=== PATIENT | female | born 1980 | race Caucasian/White ===

== ENCOUNTER 2021-06-07 12:34 | Outpatient (CLI) | payer OTHER, SELFPAY ==
--- NOTE | ~2021-06-07 | XR_ITS ---
XR chest 2V DATE: 06/07/2021 14:00 INDICATION: Morbid obesity TECHNIQUE: PA and lateral views with gonadal shielding COMPARISON: None FINDINGS: Heart size is borderline. No pulmonary infiltrate or consolidation, pleural effusion or pul monary vascular congestion or pneumothorax is detected. IMPRESSION: Borderline heart size; no active pulmonary disease Reviewed, dictated and finalized at location A.
--- NOTE | 2021-06-07 12:59 | ECHO_ITS ---
Patient Info Name: Jackie Pantoja Age: 41 years : 1980 Gender: Female Ht: 65 in Wt: 348 lbs BSA: 2.79 m2 HR: 78 bpm BP: 141 / 94 mmHg Technical Quality: Fair Exam Date: 06/07/2021 1:21 PM Exam Location: [facility] Pulmonary Patient Status: Outpatient Admit Date: 06/07/2021 Staff Ordering Physician: Esa Martinez PA-C Button Grader: Jessica Abraham RDCS Attending Provider: Esa Martinez PA-C Referring Physician: Michelle BERRY; Exam Type: CA echo doppler color flow Study Info Indications - murmur hypothyroidism Complete two-dimensional, color flow and Doppler transthoracic echocardiogram is performed. Summary 1. Complete two-dimensional, color flow and Doppler transthoracic echocardiogram is performed. 2. Left ventricular chamber dimension is normal. 3. Left ventricular systolic function is normal, estimated at 60-65%. 4. The left ventricular diastolic function is normal. 5. No pulmonary hypertension, estimated pulmonary arterial systolic pressure is 32 mmHg. Left Ventricle Tissue doppler E/e' is not measured. Left ventricular chamber dimension is normal. Left ventricular systolic function is normal, estimated at 60-65%. The left ventricular diastolic function is normal. Right Ventricle Right ventricular chamber dimension is normal. Right ventricular systolic function is normal. Left Atria Left atrial chamber dimension is normal. Right Atria Right atrial chamber dimension is normal. Aortic Valve The aortic valve is probable trileaflet. There is no aortic valve stenosis. There is no aortic valve regurgitation. Pulmonic Valve There is no pulmonic regurgitation. Mitral Valve There is no mitral valve stenosis. There is no mitral valve regurgitation. Tricuspid Valve There is no tricuspid valve regurgitation. No pulmonary hypertension, estimated pulmonary arterial systolic pressure is 32 mmHg. Pericardium/Pleural There is no pericardial effusion. Inferior Vena Cava Normal inferior vena cava with >50% collapse upon inspiration consistent with normal right atrial pressure, 5 mmHg. Aorta The aortic root size at the sinus of Valsalva is normal. Left Ventricular Outflow Tract Name Value Normal LVOT 2D LVOT Diameter 2.0 cm LVOT Doppler LVOT Peak Gradient 6 mmHg LVOT Mean Gradient 3 mmHg LVOT VTI 25 cm LVOT VTI/AV VTI Ratio 0.9 LVOT Stroke Volume 77 ml LVOT CO 16.1 l/min LVOT CI 5.8 l/min/m2 Pulmonic Valve Name Value Normal PV Doppler PV Peak Gradient 3 mmHg Tricuspid Valve Name
== END 2021-06-07 12:35 | disposition home or self-care (01) ==
PROVIDERS: PCP Family Medicine; Visit Provider Physician Assistant
DX: E66.01 Morbid (severe) obesity due to excess calories (principal); E03.9 Hypothyroidism, unspecified
CPT/HCPCS: 71046; 93306

== ENCOUNTER → 2021-08-21 11:32 | Outpatient (CLI) | payer OTHER, SELFPAY ==
--- NOTE | ~2021-08-21 | XR_ITS ---
EXAMINATION: XR knee LT 3V DATE: 08/21/2021 11:53 INDICATION: Left knee pain. TECHNIQUE: 3 views of left knee including standing views were obtained. COMPARISON: None. FINDINGS: Bone alignment is normal. No fracture. There is moderate osteoarthritis of medial compartme nt and mild osteoarthritis of lateral and patellofemoral compartments. There is a small knee joint ef fusion. IMPRESSION: 1. Moderate left knee osteoarthritis. 2. Small left knee joint effusion. Reviewed, dictated and finalized at location A. [employer]
== END ==
PROVIDERS: PCP Family Medicine; Visit Provider Physician Assistant
DX: M17.12 Unilateral primary osteoarthritis, left knee (principal); M25.462 Effusion, left knee; M25.569 Pain in unspecified knee
CPT/HCPCS: 73562

== ENCOUNTER 2021-10-21 12:30 | Outpatient (RCR) | payer OTHER, SELFPAY ==
--- NOTE | 2021-09-16 11:38 | PTOPEVAL ---
Thank you for referring Jackie Pantoja to [facility].? The patient is scheduled to be seen for therapy? 1-2 x/week for 6 weeks. Please review, sign, date and return this plan of care BRANDT. I agree with and certify that the following plan of care is medically necessary. 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 Subjective Information She woke up on Thanksgiving Query Text:As Reported By Patient/ and couldn't stand due to the Family knee pain. She reports limitations with walking, squatting, steps, daily task. She has increased pain with standing after prolonged sitting. She is performing steps with single step movement. She has increased pain with kneeling on the left knee and then returning to standing position She works in at a desk with mostly computer work. Diagnostic Tests X-Rays For This Problem Yes: Moderate left knee osteoarthritis Pain Assessment Self Report Pain Assessment Left Knee(s) Reported Pain Level 6 Pain Description Sharp,Soreness Pain Frequency Acute Lowest Pain Intensity 3 Greatest Pain Intensity 8 Pain Aggravating Factors Bending,Exercise/Activity, Prolonged Position,Sitting, Stair Climbing,Walking,Weight Bearing/Standing Lower Extremity Range of Motion Knee Range of Motion Right Knee Flexion Range of Motion - Active 105 Knee Extension Range of Motion - Passive 0 Knee Range of Motion Comments ROM limited by excessive thigh tissue Left Knee Flexion Range of Motion - Active 92 Knee Extension Range of Motion - Active 5 Query Text: Knee Range of Motion Limitations Pain Lower Extremity Muscle Strength Testing Hip Strength Right Hip Flexion Strength 3+ Fair + Hip Extension Strength 4+ Good + Hip Abduction Strength 3 Fair Left Hip Flexion Strength 3+ Fair + Hip Extension Strength 4+ Good + Hip Abduction Strength 3 Fair Knee Strength Right Knee Flexion Strength 5 Normal Knee Extension Strength 4+ Good + Left Kne
--- NOTE | 2021-10-21 13:23 | PTOPEVAL ---
Physical Therapy Progress Note Thank you for Jackie Pantoja to [facility].?Jackie has attended 7 therapy visits to address her left knee pain. As a result of skilled therapy services she reports improved pain, demonstrates improved LE strength and improved function with daily task. She has been provided a HEP. She has partially achieved her therapy goals at this time. Will hold chart open for 2-3 wks for Jackie to return if new issues arise. Please review, sign, date and return this plan of care BRANDT. I agree with and certify that the following plan of care is medically necessary. Referring Physician Date Attending Provider: Zahira Garcia MD Diagnosis left knee pain with effusion Onset 07/18/21 Additional Evaluation Detail She woke up on Thanksgiving and couldn't stand due to the knee pain. Subjective Information Reports the knee is feeling Query Text:As Reported By Patient/ better with therapy. She Family reports improved ivelisse with walking squatting and daily task. She remain limited with steps and prolonged standing. Cont limitation with prolonged sitting then changing positions. Cont increased pain with kneeling, but decreased level of pain. Improved ivelisse with knee motions. She is perform HEP daily. Pain Assessment Self Report Pain Assessment Left Knee(s) Reported Pain Level 3 Pain Description Dull,Sharp Lowest Pain Intensity 2 Greatest Pain Intensity 6 Pain Aggravating Factors Bending,Prolonged Position, Sitting,Stair Climbing,Weight Bearing/Standing Lower Extremity Range of Motion Knee Range of Motion Right Knee Flexion Range of Motion - Active 105 Knee Extension Range of Motion - Passive 0 Knee Range of Motion Comments ROM limited by excessive thigh tissue Left Knee Flexion Range of Motion - Active 95 Knee Extension Range of Motion - Active 0 Knee Range of Motion Comments ROM limited by excessive thigh tissue Lower Extremity Muscle Strength Testing Hip Strength Right Hip Flexion Strength 4+ Good + Hip Extension Strength 5 Normal Hip Abduction Strength 4- Good - Left Hip Flexion Strength 4+ Good + Hip Extension Strength 5 Normal Hip Abduction Strength 4- Good - Knee Strength Right Knee Flexion Strength 5 Normal Knee Extension Strength 5 Normal Left Knee Flexion Strength 5 Normal Knee Extensio
--- NOTE | 2021-11-14 07:53 | PCPTNOTE ---
Admitting Provider: Attending Provider: Zahira Garcia MD Patient:Jackie Pantoja Date of :1980 Discharge Note Patient has not returned for any further treatments since 10/21/2021, therefore she will be discharged at this time. Patient?s initial visit was on 09/16/2021 09:00 and she had a total of 7 visits. The goals have been partially met. Thank you for referring this patient to [facility]. Please review, sign, date and return this discharge summary BRANDT. I have been updated about the patient's current status and I agree with discharge from the above service at this time. Referring Physician Date
== END 2021-11-14 09:17 | disposition home or self-care (01) ==
LOC: ANHPT 12:30
PROVIDERS: PCP Family Medicine; Visit Provider Family Medicine
DX: M25.562 Pain in left knee (principal); M17.12 Unilateral primary osteoarthritis, left knee; M25.462 Effusion, left knee
CPT/HCPCS: 97014; 97110; 97140; 97161; G0283

== ENCOUNTER 2022-07-03 08:47 | Outpatient (CLI) | payer OTHER, SELFPAY ==
--- NOTE | ~2022-07-03 | MM_ITS ---
EXAMINATION: MM screening gulshan BI w velvet HISTORY: Screening mammogram TECHNIQUE: Craniocaudal and mediolateral oblique 3-D tomosynthesis images were obtained and synthetic 2-D images were generated. CAD analysis was submitted and interpreted. COMPARISON: No prior mammogram is available for comparison at this institution. BREAST PARENCHYMAL COMPOSITION: There are scattered areas of fibroglandular density. FINDINGS: Right breast: There is no evidence of suspicious mass, calcification, or architectural distortion to suggest malignancy in either breast. There has been no suspicious interval change. Left breast: Approximately 6 mm asymmetric opacity in the lower outer left breast at mid depth. Diagn ostic left mammogram is recommended, with ultrasound if required. IMPRESSION: 1. 6 mm asymmetric opacity in the lower outer left breast 2. Diagnostic left mammogram is recommended, with ultrasound if required BI-RADS Category 0: Incomplete: Needs additional imaging evaluation. Reviewed, dictated and finalized at location A. GROUND AIDE
== END 2022-07-03 08:48 | disposition home or self-care (01) ==
PROVIDERS: PCP Emergency Medicine; Visit Provider Obstetrics & Gynecology
DX: Z12.31 Encounter for screening mammogram for malignant neoplasm of breast (principal); R92.8 Other abnormal and inconclusive findings on diagnostic imaging of breast
CPT/HCPCS: 77063; 77067

== ENCOUNTER 2022-07-23 13:21 | Outpatient (CLI) | payer OTHER, SELFPAY ==
--- NOTE | ~2022-07-23 | MMUS_ITS ---
EXAMINATION: MM diagnostic gulshan LT w velvet, US breast LT limited HISTORY: Possible left breast mass on screening mammogram TECHNIQUE: Additional 3-D tomosynthesis images of the left breast were performed and synthetic 2-D im ages were generated. CAD analysis was submitted and interpreted. High resolution limited left breast ultrasound was performed. COMPARISON: 07/03/2022, 07/06/2019 FINDINGS: MAMMOGRAPHIC FINDINGS: There is a 7 mm oval, obscured, equal density mass in the middle third of the lower breast at the 5:0 0 location 9 cm from the nipple. No suspicious calcification or architectural distortion are identifi ed. ULTRASOUND: There is a 5 mm x 2 mm cyst at the 6:00 location 10 cm from the nipple. IMPRESSION: 1. No mammographic or sonographic evidence of malignancy. 2. Recommend routine screening mammography in one year. BI-RADS Category 2: Benign finding(s). Reviewed, dictated and finalized at location A. OLOGIC THERAPIST IMPRESSION: 1. No mammographic or sonographic evidence of malignancy. 2. Recommend routine screening mammography in one year. BI-RADS Category 2: Benign finding(s).
== END 2022-07-23 13:22 | disposition home or self-care (01) ==
PROVIDERS: PCP Emergency Medicine; Visit Provider Obstetrics & Gynecology
DX: R92.8 Other abnormal and inconclusive findings on diagnostic imaging of breast (principal)
CPT/HCPCS: 76642; 77061; 77065; G0279

== ENCOUNTER 2023-10-29 09:30 | Outpatient (RCR) | payer OTHER, SELFPAY ==
[2023-10-22 14:39] VITALS: BMI 49.0
== END 2024-01-13 23:59 | disposition home or self-care (01) ==
LOC: ANHDMC 09:30
PROVIDERS: PCP Internal Medicine; Visit Provider Clinical Nurse Specialist
DX: E11.9 Type 2 diabetes mellitus without complications (principal); E66.01 Morbid (severe) obesity due to excess calories; Z68.42 Body mass index [BMI] 45.0-49.9, adult; Z71.89 Other specified counseling; Z71.3 Dietary counseling and surveillance
CPT/HCPCS: 97802; G0108

== ENCOUNTER 2024-06-20 01:20 | Day surgery (SDC) | payer OTHER, SELFPAY ==
[2024-06-07 12:57] VITALS: BMI 48.6
--- NOTE | 2024-06-19 14:59 | P.PNAN_ITS ---
Anes - Eval Pre Procedure Procedure: Operation Date: 06/20/24 10:00 Proposed Procedures p Screening Colonoscopy - Srinivas Shafer MD Date/Time: 06/19/24 14:59 Pre Op Diagnosis: neoplasm screening Patient Data Age: 44 Gender: F Height: 1.57 m Weight: 120.5 kg Allergies Allergy/AdvReac Type Severity Reaction Status Date / Time pineapple Allergy Unknown Unknown Verified 06/07/24 12:41 Home Medications Medication Instructions Recorded Confirmed Type multivitamin 1 tablet PO DAILY 05/23/22 06/07/24 History blood sugar diagnostic (Blood #50 ea 10/01/23 05/03/24 Rx Glucose Test strips) blood-glucose meter #1 ea 10/01/23 05/03/24 Rx lancets 30 gauge #100 ea 10/01/23 05/03/24 Rx blood-glucose meter,continuous #1 ea 10/02/23 05/03/24 Rx (FreeStyle Radha 3 [place]) ondansetron HCl 4 mg tablet 4 mg PO Q8H PRN nausea and 10/09/23 06/07/24 Rx vomiting #30 tabs insulin aspart U-100 100 unit/mL 1 sliding scale dose subcut 10/21/23 06/07/24 Rx (3 mL) subcutaneous pen (Novolog USEASDIRECTD #15 mL FlexPen U-100 Insulin aspart) metformin 1,000 mg tablet 1,000 mg PO BIDWMEAL 02/24/24 06/07/24 History naproxen 500 mg tablet 500 mg PO BID PRN Pain 02/24/24 06/07/24 History levothyroxine 100 mcg tablet See Rx Instructions .Route 04/11/24 06/07/24 Rx (Euthyrox) .COMPLEX #90 tabs blood-glucose sensor (FreeStyle #1 ea 04/26/24 05/03/24 Rx Radha 3 Sensor device) tirzepatide 2.5 mg/0.5 mL 5 mg subcut WEEKLY 05/03/24 06/07/24 History subcutaneous pen injector (Tylerunsofya) pen needle, diabetic 32 gauge x #100 ea 05/16/24 Rx cholecalciferol (vitamin D3) 25 2,000 unit PO DAILY 06/07/24 06/07/24 History mcg (1,000 unit) tablet loratadine 10 mg tablet (Claritin) 10 mg PO DAILY 06/07/24 06/07/24 History Patient hx anesthesia problems: none Family hx anesthesia problems: none Results Review: All pre-operative results and documents have been reviewed as part of the pre- operative evaluation. [facility] Family History Family History Father Hypertension Mother Hypertension Family history of malignant neoplasm of breast in first degree relative Grandparent Family history of cardiovascular disease Social History Social History Smoking status: Never smoker Alcohol intake: current Drinks per week: 1 Substance use: never Substance use type: does not use Lack of Transportation: No Lack of Food: Never True Current Housing: I Have Housing Concerned About Future Housing: No Difficulty Paying Gas/Electric Bills: No Difficulty Paying for Meds: No Currently Unemployed: No Education: Master's Degree or Higher Difficulty w/ Childcare or Family Care: No Living arrangements: with family Spiritual care concerns: No Exam Day of Procedure 06/19/24 14:59
[2024-06-20 09:02] VITALS: BP 145/79; PULSE 64; RESP 18; TEMP 36.2; O2SAT 100
[2024-06-20 09:24] LABS: Glucose Point of Care 119 mg/dl (65-105)
[2024-06-20 09:25] LABS: BEDSIDEPREGUCG Negative (Negative)
[2024-06-20] MEDS: LACTATED RINGERS 1,000 ML 150 ML IV CONT (09:50)
--- NOTE | 2024-06-20 10:03 | P.HP_ITS ---
H&P: HPI History of Present Illness Date/Time: 06/20/24 10:03 Chief Complaint: Screening colonoscopy Narrative: This is the patient's first colonoscopy. There are no GI symptoms and there is no family history of colorectal cancer. Review of Systems Review of Systems: All systems reviewed & are unremarkable except as noted in HPI and below PMFSH Family History Family History Father Hypertension Mother Hypertension Family history of malignant neoplasm of breast in first degree relative Grandparent Family history of cardiovascular disease Social History Social History Smoking status: Never smoker Alcohol intake: current Drinks per week: 1 Substance use: never Substance use type: does not use Lack of Transportation: No Lack of Food: Never True Current Housing: I Have Housing Concerned About Future Housing: No Difficulty Paying Gas/Electric Bills: No Difficulty Paying for Meds: No Currently Unemployed: No Education: Master's Degree or Higher Difficulty w/ Childcare or Family Care: No Living arrangements: with family Spiritual care concerns: No Meds Home Medications and Allergies Home Medications Medication Instructions Recorded Confirmed Type multivitamin 1 tablet PO DAILY 05/23/22 06/20/24 History blood sugar diagnostic (Blood #50 ea 10/01/23 06/20/24 Rx Glucose Test strips) blood-glucose meter #1 ea 10/01/23 06/20/24 Rx lancets 30 gauge #100 ea 10/01/23 06/20/24 Rx blood-glucose meter,continuous #1 ea 10/02/23 06/20/24 Rx (FreeStyle Radha 3 [place]) ondansetron HCl 4 mg tablet 4 mg PO Q8H PRN nausea and 10/09/23 06/20/24 Rx vomiting #30 tabs insulin aspart U-100 100 unit/mL 1 sliding scale dose subcut 10/21/23 06/20/24 Rx (3 mL) subcutaneous pen (Novolog USEASDIRECTD #15 mL FlexPen U-100 Insulin aspart) metformin 1,000 mg tablet 1,000 mg PO BIDWMEAL 02/24/24 06/20/24 History naproxen 500 mg tablet 500 mg PO BID PRN Pain 02/24/24 06/20/24 History levothyroxine 100 mcg tablet See Rx Instructions .Route 04/11/24 06/20/24 Rx (Euthyrox) .COMPLEX #90 tabs blood-glucose sensor (FreeStyle #1 ea 04/26/24 06/20/24 Rx Radha 3 Sensor device) tirzepatide 2.5 mg/0.5 mL 5 mg subcut WEEKLY 05/03/24 06/20/24 History subcutaneous pen injector (Adrian) pen needle, diabetic 32 gauge x #100 ea 05/16/24 06/20/24 Rx cholecalciferol (vitamin D3) 25 2,000 unit PO DAILY 06/07/24 06/20/24 History mcg (1,000 unit) tablet loratadine 10 mg tablet (Claritin) 10 mg PO DAILY 06/07/24 06/20/24 History Allergies Allergy/AdvReac Type Severity Reaction Status Date / Time pineapple Allergy Unknown Unknown Verified 06/20/24 09:00 Vital Signs Vital Signs - 24 hr 06/20/24 09:02 Temperature 97.2 F L Pulse Rate 64 Respiratory Rate 18 Blood Pressure 145/79 H Pulse Oximetry 100 Oxygen Delivery Room Air Assessment and Plan Assessment and plan (1) Screening for colon cancer: Code(s): Z12.11 - Encounter for screening for malignant neoplasm of colon Status: Acute Plan The patient is deemed a good candidate for the procedure. Consent signed. Will proceed.
--- NOTE | 2024-06-20 10:07 | WPDANESEPPF ---
Anes - Initial Pre Proc Eval Procedure: Operation Date: 06/20/24 10:00 Proposed Procedures p Screening Colonoscopy - Srinivas Shafer MD Date/Time: 06/20/24 10:07 Surgeon: Srinivas Shafer MD Pre Op Diagnosis: neoplasm screening Patient Data Age: 44 Gender: F Height: 1.57 m Weight: 121.6 kg Last Vital Signs Temp 36.2 C L 06/20/24 09:02 Pulse 64 06/20/24 09:02 Resp 18 06/20/24 09:02 BP 145/79 H 06/20/24 09:02 Pulse Ox 100 06/20/24 09:02 O2 Del Method Room Air 06/20/24 09:02 Allergies Allergy/AdvReac Type Severity Reaction Status Date / Time pineapple Allergy Unknown Unknown Verified 06/20/24 09:00 Home Medications Medication Instructions Recorded Confirmed Type multivitamin 1 tablet PO DAILY 05/23/22 06/20/24 History blood sugar diagnostic (Blood #50 ea 10/01/23 06/20/24 Rx Glucose Test strips) blood-glucose meter #1 ea 10/01/23 06/20/24 Rx lancets 30 gauge #100 ea 10/01/23 06/20/24 Rx blood-glucose meter,continuous #1 ea 10/02/23 06/20/24 Rx (FreeStyle Radha 3 [place]) ondansetron HCl 4 mg tablet 4 mg PO Q8H PRN nausea and 10/09/23 06/20/24 Rx vomiting #30 tabs insulin aspart U-100 100 unit/mL 1 sliding scale dose subcut 10/21/23 06/20/24 Rx (3 mL) subcutaneous pen (Novolog USEASDIRECTD #15 mL FlexPen U-100 Insulin aspart) metformin 1,000 mg tablet 1,000 mg PO BIDWMEAL 02/24/24 06/20/24 History naproxen 500 mg tablet 500 mg PO BID PRN Pain 02/24/24 06/20/24 History levothyroxine 100 mcg tablet See Rx Instructions .Route 04/11/24 06/20/24 Rx (Euthyrox) .COMPLEX #90 tabs blood-glucose sensor (FreeStyle #1 ea 04/26/24 06/20/24 Rx Radha 3 Sensor device) tirzepatide 2.5 mg/0.5 mL 5 mg subcut WEEKLY 05/03/24 06/20/24 History subcutaneous pen injector (Adrian) pen needle, diabetic 32 gauge x #100 ea 05/16/24 06/20/24 Rx cholecalciferol (vitamin D3) 25 2,000 unit PO DAILY 06/07/24 06/20/24 History mcg (1,000 unit) tablet loratadine 10 mg tablet (Claritin) 10 mg PO DAILY 06/07/24 06/20/24 History Laboratory Tests 06/20/24 06/20/24 09:02 09:21 POC Capillary Glucose 119 H mg/dl (65-105) POC Urine HCG, Qual Negative (Negative) Patient hx anesthesia problems: none Family hx anesthesia problems: none Results Review: All pre-operative results and documents have been reviewed as part of the pre-operative evaluation. [facility] Family History Family History Father Hypertension Mother Hypertension Family history of malignant neoplasm of breast in first degree relative Grandparent Family history of cardiovascular disease Social History Social History Smoking status: Never smoker Alcohol intake: current Drinks per week: 1 Substance use: never Substance use type: does not use Lack of Transportation: No Lack of Food: Never True Current Housing: I Have Housing Concerned About Future Housing: No Difficulty Paying Gas/Electric Bills: No Difficulty Paying for Meds: No Currently Unemployed: No Education: Master's Degree or Higher Difficulty w/ Childcare or Family Care: No Living arrangements: with family Spiritual care concerns: No Anes - Eval Final PreProcedure Day of Procedure 06/20/24 10:07 Patient weight: morbidly obese Heart: regular rate and rhythm Lungs: clear to auscultation Airway: Mallampati scale class II Neurological: alert and oriented Last oral intake: >/= 8 hours ASA classification: III Emergent: no Anesthetic plan: proceed Anesthesia type and monitoring: general GIVS and standard monitoring Results Review: All pre-operative results and documents have been reviewed as part of the pre-operative evaluation. Informed Consent: The patient's anesthetic plan and its attendant risks and benefits were discussed with the patient/family/POA. Questions were solicited and answers provided to the satisfaction of the patient/family/POA.
[2024-06-20 10:31] VITALS: BP 123/82; PULSE 69; RESP 18; O2SAT 100
[2024-06-20 10:41] VITALS: BP 130/84; PULSE 70; RESP 16; O2SAT 100
[2024-06-20 10:41] LABS: Glucose Point of Care 103 mg/dl (65-105)
[2024-06-20 10:51] VITALS: BP 150/92; PULSE 68; RESP 18; O2SAT 100
== END 2024-06-20 11:02 | disposition home or self-care (01) ==
PROVIDERS: PCP Internal Medicine; Referring Provider Clinical Nurse Specialist; Visit Provider Internal Medicine Gastroenterology
PROC: 0DJD8ZZ Inspection of Lower Intestinal Tract, Via Natural or Artificial Opening Endoscopic (ICD-10-PCS; CPT 45378; principal; 2024-06-20 10:00)
DX: Z12.11 Encounter for screening for malignant neoplasm of colon (principal); K57.30 Diverticulosis of large intestine without perforation or abscess without bleeding; E66.01 Morbid (severe) obesity due to excess calories; Z68.42 Body mass index [BMI] 45.0-49.9, adult; Z79.4 Long term (current) use of insulin; Z79.84 Long term (current) use of oral hypoglycemic drugs; Z79.1 Long term (current) use of non-steroidal anti-inflammatories (NSAID); Z79.85 Long-term (current) use of injectable non-insulin antidiabetic drugs; Z80.3 Family history of malignant neoplasm of breast; Z82.49 Family history of ischemic heart disease and other diseases of the circulatory system
CPT/HCPCS: 45378; 82948; J2003; J2704; J7120

== ENCOUNTER 2024-09-30 14:36 | Outpatient (CLI) | payer OTHER, SELFPAY ==
--- NOTE | ~2024-09-30 | MM_ITS ---
EXAMINATION: MM screening gulshan BI w velvet HISTORY: Screening TECHNIQUE: Craniocaudal and mediolateral oblique 3-D tomosynthesis images were obtained and synthetic 2-D images were generated. CAD analysis was submitted and interpreted. COMPARISON: Comparison to multiple prior studies sequentially, with oldest reviewed study dated 06/24. BREAST PARENCHYMAL COMPOSITION: Not dense: There are scattered areas of fibroglandular density. FINDINGS: There is no evidence of suspicious mass, calcification, or architectural distortion to sugg est malignancy in either breast. There has been no suspicious interval change. IMPRESSION: 1. No mammographic evidence of malignancy. 2. Recommend routine screening mammography in one year. BI-RADS Category 1: Negative Reviewed, dictated and finalized at location [] TAL BUSINESS ANALYST
--- OUTSIDE RECORDS SUMMARY | 2024-09-30 14:41 | XMS_ITS | Clinical Summary ---
Author Organization [address] Address [address] [place] [id number] Care Team Providers Care Data Analyst Name Role Phone Eliana Terrazas NP Primary Care Provider [phone] Allergies Active Allergy Reactions Criticality Noted Date Comments Other Unknown 01/05/2024 Medications insulin lispro (HumaLOG, ADMELOG) 100 unit/mL pen for injection USE SLIDING SCALE DOSE DIRECTED. IF BLOOD SUGAR IS 60-124: DO NOT SLIDE 125-150: 2 UNITS 151-200 4 UNITS 201-250: 6 UNITS 251-300: 8 UNITS 301-350: 10 UNITS 351-400: 12 UNITS MAX DOSE OF 12 UNITS UNLESS DIRECTED. IF OVER 400 THEN NOTIFY OFFICE 11/16/19 24 Active ibuprofen (ADVIL,MOTRIN) 600 mg tablet Take 1 tablet (600 mg total) by mouth every 6 (six) hours 10/23/19 16 Active pen needle, diabetic 32 gauge x 5/32 needle as directed 12/14/19 24 Active loratadine (CLARITIN) 10 mg tablet Take 1 tablet (10 mg total) by mouth daily Active multivitamin tabletIndications: Vitamin Deficiency Prevention Take 1 tablet by mouth Active metFORMIN (GLUCOPHAGE) 1,000 mg tabletIndications: Type 2 diabetes mellitus with hyperglycemia, with long-term current use of insulin (HCC) Take 1 tablet (1,000 mg total) by mouth 2 (two) times a day with meals 180 tablet 3 05/02/20 24 025 Active FreeStyle Radha 3 Sensor deviceIndications: Type 2 diabetes mellitus with hyperglycemia, with long-term current use of insulin (HCC) One sensor every 14 days 2 each 05/02/20 24 Active levothyroxine (SYNTHROID) 100 mcg tabletIndications: 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 Take 1 tablet (100 mcg total) by mouth transitional care liaison before breakfast 90 tablet 3 05/02/20 24 025 Active ondansetron ODT (ZOFRAN-ODT) 4 mg disintegrating tablet Take 1 tablet (4 mg total) by mouth every 8 (eight) hours as needed for nausea or vomiting 30 tablet 05/02/20 24 Active tirzepatide (Mounjaro) 7.5 mg/0.5 mL pen injector injection Inject 0.5 mL (7.5 mg total) under the skin once a week 2 mL 3 09/29/19 25 Active Mounjaro 5 mg/0.5 mL pen injectorIndication s:Type 2 diabetes mellitus with hyperglycemia, with long-term current use of insulin (HCC) Inject 5 mg under the skin every 7 days 2 mL 5 05/02/20 24 025 Discontin ued(Thera py completed ) Active Problems Problem Noted Date Diagnosed Date Morbid obesity with BMI of 50.0-59.9, adult 12/22 Assessment & Plan (05/02/2024 1:40 PM CDT): Chronic, slowly improving but still above goal Counseled on lifestyle habits Advised patient to increase physical activity include resistance training exercises Assessment & Plan (01/05/2024 12:34 PM CDT): Counseled on healthy lifestyle habits Type 2 diabetes mellitus wit h hyperglycemia, with long-term current use of insulin 01/05/2024 Assessment & Plan (05/02/2024 1:40 PM CDT): Chronic, oral improving control A1c 6.1% Reviewed freestyle Radha 3 download Average blood sugar 149 Target blood sugar 190 1% High 9% Very high 0% Low 0% Very low 0% Plan to continue metformin 1000 mg 1 tablet oral twice a day Increase Mounjaro to 5 mg subQ weekly We will try to obtain patient's last eye exam copy Counseled on diet and exercise Follow-up in 6 months Assessment & Plan (01/05/2024 12:33 PM CDT): Chronic, improving controlled A1c at goal with 6.3% Reviewed free style Radha 3 download 89% blood sugar in target range No significant hypoglycemia noted Counseled on healthy lifestyle habits Start Mounjaro 2.5 mg subQ weekly ( discussed about mechanism of action, side effects and benefits ) Stop Basaglar For now continue metformin and insulin lispro sliding scale with meals Continue freestyle Radha 3 CGM Will try to obtain patient last eye exam copy Labs today Follow-up in 3 months 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 Assessment & Plan (05/02/2024 1:38 PM CDT): Chronic, stable Recommend to continue current dose of levothyroxine 100 mcg oral daily Assessment & Plan (01/05/2024 12:32 PM CDT): Chronic, unknown status Patient currently on levothyroxine 100 mcg oral daily Recheck thyroid function test and further plans based on it Possible , not yet confirmed 02/19/2015 Female infertility 01/25/2015 Resolved Problems Problem Noted Date Diagnosed Date Resolved Date Mynor's thyroiditis 09/29/201312/22 Thyroid activity decreased 03/24/2013 0 01/05/2024 Medical History Medical History Date Comments Personal history of other en docrine, nutritional and metabolic disease History of thyroid d isease - When (Added by TW Conv) Personal history of other en docrine, nutritional and metabolic disease History of diabetes mellitus - Gestational (Added by TW Conv) Family History Medical History Relation Name Comments Hypothyroidism Father Family histor y of hypothyroidism - (Added by TW Conv) Hypertension Other Reported Previo us High Blood Pressure - Mother and Father (Added by TW Conv) Obesity Other Obesity - Mothe r, Father (Added by TW Conv) Thyroid disease Other Thyroid Diso rder - Father (Added by TW Conv) Relation Name Status Comments Father Other Social History Tobacco Use Types Packs/Day Years Used Date Smoking Tobacco: Never Smokeless Tobacco: Never Tobacco Cessation:Counseling Given: Not Answered PHQ-2 Answer Date Recorded PHQ-2 Total Score (If total score is 3 or more points, staff should administer the PHQ-9) 0 05/02/2024 Comments Unknown Sex and Gender Information Value Date Recorded Sex Assigned at Not on file 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 Gender Identity Not on file Sexual Orientation Not on file Obstetrics History Last Filed Vital Signs Vital Sign Reading Time Taken Comments Blood Pressure 124/70 05/02/2024 12:53 PM CDT Pulse 69 05/02/2024 12:53 PM CDT Temperature - - Respiratory Rate 16 05/02/2024 12:53 PM CDT Oxygen Saturation - - Inhaled Oxygen Concentration - - Weight 123.4 kg (272 lb) 05/02/2024 12:53 PM CDT Height 157.5 cm (5' 2 ) 05/02/2024 12:53 PM CDT Body Mass Index 49.75 05/02/2024 12:53 PM CDT Plan of Treatment Health Maintenance Due Date Last Done Comments Breast Cancer Screening-Mammogram 1979 Cervical Cancer Screening 1979 Colon Cancer Screening-Colonoscopy 1979 Hepatitis C Screening 1979 Dilated Eye Exam 1979 Pneumococcal vaccine <65 (1 of 2 - PCV) 1985 Hepatitis B Screening 1997 Regular Well Visit/Exam 18-64 1997 Covid-19 Vaccine ( season) 2024 05/21/2023, 07/27/2022, 07/24/2021, Additional history exists Influenza Vaccine (#1) 2024 , 06/28/2022, 05/10/2021, Additional history exists Hemoglobin A1C 10/30/2024 05/02/2024, 01/05/2024 Albumin Creatinine Ratio, Urine 01/04/2025 01/05/2024 Lipid Panel 01/04/2025 01/05/2024 eGFR 01/04/2025 01/05/2024 Depression Screening 05/02/2025 05/02/2024, 01/05/20 24 Foot Exam 05/02/2025 05/02/2024, 01/05/2024 DTaP/Tdap/Td Vaccine (3 - Td or Tdap) 03/13/2032 03/13/2022, 03/30/2010 HPV Vaccines Aged Out No longer eligi ble based on patient's age to complete this topic Procedures Procedure Name Priority Date/Time Associated Diagnosis Comments POCT HEMOGLOBIN A1C Routine 05/02/2024 1 2:56 PM CDT Type 2 diabetes mellitus with hyperglycemia, with long-term current use of insulin (HCC) EGFR Routine 01/05/2024 12:50 PM CDT Type 2 diabetes mellitus with hyperglycemia, with long-term current use of insulin (HCC) LIPID PANEL Routine 01/05/2024 12:50 PM CDT Type 2 diabetes mellitus with hyperglycemia, with long-term current use of insulin (HCC) ALBUMIN CREATININE RATIO, URINE Routine 01/05/2024 12:50 PM CDT Type 2 diabetes mellitus with hyperglycemia, with long-term current use of insulin (HCC) from Last 3 Months or Most Recently Relevant to Health Maintenance Results * POCT hemoglobin A1c (05/02/2024 12:56 PM CDT) Hemoglobin A1C, POC 6.1 4.0 - 5.6 % Blood 05/02/2024 12:5 6 PM CDT [facility] [place] Beckham MD POINT OF CARE TEST ORDERABLES Final Result * eGFR (01/05/2024 12:50 PM CDT) eGFR >90 >=60 mL/min/1. 73 m2 Comment: Interpretive Data Reference Interval Normal >/= 90 mL/min/1.73m2 Mildly decreased* 60 - 89 mL/min/1.73m2 Mildly to moderately decreased 45 - 59 mL/min/1.73m2 Moderately to severely decreased 30 - 44 mL/min/1.73m2 Severely decreased 15 - 29 mL/min/1.73m2 Kidney Failure < 15 mL/min/1.73m2 *Relative to young adult level Estimated glomerular filtration rate is determined by the 2020 CKD-EPI equation recommended by the National Kidney Foundation (A Unifying Approach to GFR Estimation: Recommendations of the NKF-ASK Task Force on Reassessing the Inclusion of Race in Diagnosing Kidney Disease, JASN 2020). The CKD-EPI equation should not be used for patients with unstable renal function and has not been validated in children and those over 70. Current interpretive data was last reviewed 2021. Blood 01/05/2024 12:5 0 PM CDT 01/05/2024 5:58 PM CDT Camila Beckham MD LAB BLOOD ORDERABLE S Final Result Performing Organization Address [facility] Co de Phone Number DEENA [phone] [address] [place] [address] * Albumin Creatinine Ratio, Urine (01/05/2024 12:50 PM CDT) Albumin Ur <12.0 mg/L Comment: Interpretive Data No reference range established. Current interpretive data was last revised 2019. Creatinine Ur 46.8 mg/dL DEENA Comment: Interpretive Data No reference range established. Current interpretive data was last revised 2019. Albumin Creatinine Ratio, Ur <26 1 - 29 mg/g [facility] Urine 01/05/2024 12:5 0 PM CDT 01/05/2024 5:07 PM CDT Camila Beckham MD LAB URINE ORDERABLE S Final Result Performing Organization Address [facility] de Phone Number DEENA AGUILAR [phone] [address] [facility] [place] [address] * Lipid panel (01/05/2024 12:50 PM CDT) Cholesterol 169 30 - 199 mg/dL Comment: Interpretive Data Ages < or = 19 years Acceptable: <170 mg/dL Borderline high: 170-199 mg/dL High: >or= 200 mg/dL Ages > or = 20 years Desirable: <200 mg/dL Borderline high: 200-239 mg/dL High: >or= 240 mg/dL Literature References: 1. Expert Panel on Integrated Guidelines for Cardiovascular Health and Risk Reduction in Children and Adolescents. Pediatrics 2011;128:S213 2. NCEP Expert Panel. Circulation 2004;110:227 Current Interpretive Data was last revised on 2018. Triglycerides 73 <=149 mg/dL DEENA Comment: Interpretive Data Ages < or = 9 years Acceptable: <75 mg/dL Borderline high: 75-99 mg/dL High: >or= 100 mg/dL Ages 10 to 20 years Acceptable: <90 mg/dL Borderline high: 90-129 mg/dL High: >or= 130 mg/dL Ages > or = 20 years Desirable: <150 mg/dL Borderline high: 150-199 mg/dL High: 200-499 mg/dL Very high: >or= 499 mg/dL Literature References: 1. Expert Panel on Integrated Guidelines for Cardiovascular Health and Risk Reduction in Children and Adolescents. Pediatrics 2011;128:S213 2. NCEP Expert Panel. Circulation 2004;110:227 Current Interpretive Data was last revised on 2018. HDL 56 >=40 mg/dL DEENA Comment: Interpretive Data Ages < or = 19 years Acceptable: >45 mg/dL Borderline low: 40-45 mg/dL Low: <40 mg/dL Ages > or = 20 years Desirable: >or= 60 mg/dL Low: <40 mg/dL Literature References: 1. Expert Panel on Integrated Guidelines for Cardiovascular Health and Risk Reduction in Children and Adolescents. Pediatrics 2011;128:S213 2. NCEP Expert Panel. Circulation 2004;110:227 Current Interpretive Data was last revised on 2018. LDL, calculated 98 <=129 mg/dL DEENA Comment: Interpretive Data Ages < or = 19 years Acceptable: <110 mg/dL Borderline high: 110-129 mg/dL High: >or= 130 mg/dL Ages > or = 20 years Optimal: <100 mg/dL Near optimal: 100-129 mg/dL Borderline high: 130-159 mg/dL High: >160 mg/dL Literature References: 1. Expert Panel on Integrated Guidelines for Cardiovascular Health and Risk Reduction in Children and Adolescents. Pediatrics 2011;128:S213 2. NCEP Expert Panel. Circulation 2004;110:227 Current Interpretive Data was last revised on 2018. Non-HDL Cholesterol 113 mg/dL DEENA Comment: Interpretive Data Ages < or = 19 years Acceptable: <120 mg/dL Borderline high: 120-144 mg/dL High: >145 mg/dL Ages > or = 20 years When triglycerides are >200 mg/dL, Non-HDL cholesterol is a secondary target of therapy with treatment goals that are 30 mg/dL greater than the LDL cholesterol target. Literature References: 1. Expert Panel on Integrated Guidelines for Cardiovascular Health and Risk Reduction in Children and Adolescents. Pediatrics 2011;128:S213 2. NCEP Expert Panel. Circulation 2004;110:227 Current Interpretive Data was last revised on 2018. Chol/HDL ratio 3 DEENA AGUILAR Blood 01/05/2024 12:5 0 PM CDT 01/05/2024 5:07 PM CDT us Supraja [place] Beckham MD LAB BLOOD ORDERABLE S Final Result DEENA AUGILAR [id number] [address] [place] [address] from Last 3 Months or Most Recently Relevant to Health Maintenance Insurance [facility] Care Teams Data Analyst Relationship Specialty Start Date End Date Eliana Terrazas NP [facility] [address] [place] [id number] PCP - General Cardiovascular Disease 10/26/23
--- OUTSIDE RECORDS SUMMARY | 2024-09-30 14:41 | XMS_ITS | Referral Summary ---
Author Organization [address] Address [address] [place] [phone] Care Team Providers Care Technology Support Analyst Name Role Phone Eliana Terrazas NP Primary Care Provider [phone] Allergies Active Allergy Reactions Criticality Noted Date [...] 1 tablet (100 mcg total) by mouth mass spectrometry manager before breakfast 90 tablet 3 05/02/20 24 [...] 09/29/201312/22 Thyroid activity decreased 03/24/2013 0 01/05/2024 Social History Tobacco Use Types Packs/Day Years Used Date Smoking Tobacco: Never Smokeless Tobacco: Never Tobacco Cessation:Counseling Given: Not Answered PHQ-2 Answer Date Recorded PHQ-2 Total Score (If total score is 3 or more points, staff should administer the PHQ-9) 0 05/02/2024 Comments Unknown Sex and Gender Information Value Date Recorded Sex Assigned at Not on file 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 Gender Identity Not on file Sexual Orientation Not on file Last Filed Vital Signs Vital Sign Reading [...] 05/02/2024 12:53 PM CDT Plan of Treatment Not on file Procedures Procedure Name Priority Date/Time Associated Diagnosis [...] % Blood 05/02/2024 12:5 6 PM CDT Camila Beckham MD POINT OF CARE TEST ORDERABLES [...] 0 PM CDT 01/05/2024 5:58 PM CDT us Camila Beckham MD LAB BLOOD ORDERABLE S Final Result Performing Organization Address [facility] de Phone Number DEENA [phone] [address] [address] * Albumin Creatinine Ratio, Urine (01/05/2024 12:50 PM CDT) Albumin Ur <12.0 mg/L Comment: Interpretive Data No reference range established. Current interpretive data was last revised 2019. Creatinine Ur 46.8 mg/dL DEENA AGUILAR Comment: Interpretive Data No reference range established. Current interpretive data was last revised 2019. Albumin Creatinine Ratio, Ur <26 1 - 29 mg/g DEENA Urine 01/05/2024 12:5 0 PM CDT 01/05/2024 5:07 PM CDT us Camila Beckham MD LAB URINE ORDERABLE S Final Result Performing Organization Address [facility] de Phone Number DEENA [phone] [place] [address] * Lipid panel (01/05/2024 12:50 PM CDT) [...] on 2018. Triglycerides 73 <=149 mg/dL DEENA AGUILAR Comment: Interpretive Data Ages < or = [...] on 2018. HDL 56 >=40 mg/dL DEENA AGUILAR Comment: Interpretive Data Ages < or = [...] 2018. LDL, calculated 98 <=129 mg/dL DEENA AGUILAR Comment: Interpretive Data Ages < or = [...] on 2018. Non-HDL Cholesterol 113 mg/dL DEENA AGUILAR Comment: Interpretive Data Ages < or = [...] PM CDT 01/05/2024 5:07 PM CDT us Robertja [place] Beckham MD LAB BLOOD ORDERABLE S Final Result DEENA [phone] [address] [place] [address] from Last 3 Months or Most Recently Relevant to Health Maintenance Insurance [facility] HMO/PPO Address: [facility] [address] [place] [address] Care Teams Technology Support Analyst Relationship Specialty Start Date End Date Eliana Terrazas NP [address] [place] [address] DR [address] [place] [id number] PCP - General Cardiovascular Disease 3/4/24
--- OUTSIDE RECORDS SUMMARY | 2024-09-30 14:41 | XMS_ITS | Continuity of Care Document ---
Author Organization [facility] Address [address] [place] [address] Phone Care Team Providers Care Lab Systems Analyst Name Role Phone MD JOSEPH GILBERT Unavailable Unavailable Advance Directives Directive Yes / No Effective Date File Name No Information Encounters Encounter Description Practice Location Reason(s) For Visit Diagnoses Date Provider Providers Copied on Encounter [facility], [address] [facility], [place], [place], [id number], [place] tel:[phone] [facility] No Information MD BREANNA JOSEPH. [address] [place] [address], [id number], [place]. tel:[phone] Family History Family Member Type Diagnosis Age At Onset No Information Payers Payer name Insurance type Covered republican ID Authoriza tisandip(s) [facility] [id number] CI [id number] Social History Type Description Quantity Date Captured Comments Sex Female Smoking Status No Information Chief Complaint And Reason For Visit No Information History Of Present Illness Encounter Date Complaint History Of Prese nt Illness No Information Instructions Date Instruction Additional Infor mation No Information Assessments Type Assessment Date No Information
== END 2024-09-30 14:37 | disposition home or self-care (01) ==
LOC: ANHIMG 14:38
PROVIDERS: PCP Internal Medicine; Visit Provider Clinical Nurse Specialist
DX: Z12.31 Encounter for screening mammogram for malignant neoplasm of breast (principal)
CPT/HCPCS: 77063; 77067